=== PATIENT | female | born 1955 | race Hispanic/Latino ===

== ENCOUNTER → 2020-01-30 | Outpatient (CLI) | payer OTHER | END | disposition home or self-care (01) | LOC: RAH 13:03 | PROVIDERS: ATTEND Internal Medicine Nephrology | DX: Z13.6 Encounter for screening for cardiovascular disorders (principal); K44.9 Diaphragmatic hernia without obstruction or gangrene | CPT/HCPCS: 75571 ==

== ENCOUNTER → 2025-08-04 | Outpatient (CLI) | payer OTHER ==
--- NOTE | 2025-08-05 14:38 | HMCIMG ---
EXAM: CT Cardiac calcium scoring. CLINICAL HISTORY: CAD screening. TECHNIQUE: Thin collimated axial CT cardiac images were obtained. A CT scan is done according to ALARA (As Low As Reasonably Achievable). CONTRAST: None. COMPARISON: CT dated 01/30/2020. FINDINGS: Moderate to large hiatus hernia noted. Calcium Score: VESSEL Number of lesions Volume mm3 Equi. Mass/mg Calcium score LM 1 5.8 --.-- 3.9 LAD 1 14.6 --.-- 17.9 LCX 0 00.00 00.00 00.00 RCA 0 00.00 00.00 00.00 Total 2 20.4 --.-- 21.7 IMPRESSION: The calcium score is 21.7. This places the patient into the 50th percentile in comparison to a group of patients asymptomatic for coronary artery disease with the same age and gender. This means that 50% of females aged 70-74 have a calcium score that is lower than the patient's. Mild interval worsening noted. Moderate to large hiatus hernia. Significant interval increase in the size of the hernia. /Pegram
== END | disposition home or self-care (01) ==
LOC: RAH 14:16
PROVIDERS: ATTEND Internal Medicine Nephrology
DX: Z13.6 Encounter for screening for cardiovascular disorders (principal); K44.9 Diaphragmatic hernia without obstruction or gangrene; I25.10 Atherosclerotic heart disease of native coronary artery without angina pectoris
CPT/HCPCS: 75571